=== PATIENT | female | born 1960 | race Caucasian/White ===

== ENCOUNTER 2020-02-02 07:31 | Outpatient (CLI) | payer OTHER, SELFPAY ==
--- NOTE | ~2020-02-02 | MM_ITS ---
EXAMINATION: MM screening sae BI w maddie HISTORY: Screening mammogram TECHNIQUE: Craniocaudal and mediolateral oblique 3-D tomosynthesis images were obtained and synthetic 2-D images were generated. Bilateral rotated lateral CC views. CAD analysis was submitted and inter preted. COMPARISON: 01/31/2019, 10/09/2016, 09/22/2013 bilateral digital screening mammogram examinations BREAST PARENCHYMAL COMPOSITION: The breasts are heterogeneously dense, which may obscure small masses .. FINDINGS: Minimal benign calcification on the left. There is no evidence of suspicious mass, calcif ication, or architectural distortion to suggest malignancy in either breast. There has been no suspic ious interval change. IMPRESSION: 1. No mammographic evidence of malignancy. 2. Recommend routine screening mammography in one year. BI-RADS Category 2: Benign finding(s). Reviewed, dictated and finalized at location A.
== END 2020-02-02 07:32 | disposition home or self-care (01) ==
LOC: ANHIMG 07:34
PROVIDERS: PCP Family Medicine; Visit Provider Family Medicine
DX: Z12.31 Encounter for screening mammogram for malignant neoplasm of breast (principal)
CPT/HCPCS: 77063; 77067

== ENCOUNTER 2021-12-29 12:47 | Emergency (ER) | payer OTHER, SELFPAY ==
[2021-12-29] VITALS (8 sets, daily range): BP systolic 113–140; BP diastolic 65–97; PULSE 54–76; RESP 9–22; TEMP 36.1; O2SAT 96–100
--- NOTE | ~2021-12-29 | XR_ITS ---
EXAMINATION: XR chest 2V EXAM DATE: 12/29/2021 13:28 INDICATION: Central chest pain. TECHNIQUE: Frontal and lateral projections of the chest obtained and reviewed. There is no prior azucena dy for comparison. FINDINGS: Right apical calcified granuloma. The lungs are clear. There are no pleural effusions. T he cardiomediastinal silhouette is within normal limits. There is no pneumothorax suspected. Mild t horacic dextroscoliosis. IMPRESSION: No acute cardiopulmonary findings. Reviewed, dictated and finalized at location A.
--- NOTE | 2021-12-29 12:57 | ECG_ITS ---
Measurements Intervals [place] Rate: 79 P: 24 NM: 176 QRS: -27 QRSD: 94 T: 1 QT: 361 QTc: 416 Interpretive Statements SINUS RHYTHM MODERATE VOLTAGE CRITERIA FOR LVH, CONSIDER NORMAL VARIANT [MEETS CRITERIA IN ONE OF: R(aVL), S(V1), R(V5), R(V5/V6)+S(V1)] POSSIBLE ANTERIOR MYOCARDIAL INFARCTION , PROBABLY OLD [30 ms Q WAVE IN V3/V4, OR R < 0.2 mV IN V4] ABNORMAL ECG NO PREVIOUS ECG AVAILABLE FOR COMPARISON Electronically Signed On 01-01-2022 16:41:24 CDT by Roe Cerna M.D.
--- NOTE | 2021-12-29 13:20 | ED.CHESTPAIN ---
HPI - Chest Pain General Chief Complaint: Chest Pain Stated Complaint: Chest pain Time Seen by Provider: 12/29/21 12:52 History of Present Illness HPI narrative: Patient is a 61-year-old female who presents the ER with chest pain. Intermittent since 6 AM. Occurs once every 30 minutes. It would last for 5 seconds. It is just right of her sternum and below her breast. No radiation into the shoulder. No nausea or vomiting. No exertional component. No history of coronary disease. Reports she was carrying some heavy items yesterday and was concerned maybe she could have injured herself. No numbness or tingling down her arm. She has not a Portuguese pain medication. Cannot describe any alleviating factors. Related Data Allergies Allergy/AdvReac Type Severity Reaction Status Date / Time erythromycin base Allergy Unknown Nausea Verified 12/29/21 12:54 Penicillins Allergy Unknown Hives Verified 12/29/21 12:54 Review of Systems Review of Systems: All systems reviewed & are unremarkable except as noted in HPI and below Constitutional: Constitutional: Denies chills, Denies fever(s) and Denies weakness ENT: Denies nasal congestion and Denies sore throat Cardiovascular: Cardiovascular: Reports chest pain, Denies rapid heart rate and Denies radiating jaw, neck or arm pain Respiratory: Respiratory: Denies cough, Denies dyspnea and Denies wheezing Gastrointestinal: Gastrointestinal: Denies abdominal pain, Denies nausea and Denies vomiting Musculoskeletal: Musculoskeletal: Denies back pain and Denies muscle cramps Neurologic: Denies focal weakness and Denies numbness PMFSH Past Medical History Medical History (Updated 12/29/21 @ 16:36 by Teodoro Hastings MD) Generalized anxiety disorder Prediabetes Prehypertension Reactive airway disease Scoliosis (and kyphoscoliosis), idiopathic Surgical History Surgical History (Updated 12/29/21 @ 13:23 by Teodoro Hastings MD) History of appendectomy (~1979) History of facial surgery Family History Family History Mother Diabetes mellitus Asthma Family history of mental disorder Depression Hypertension Family history of congestive heart failure Family history of cardiovascular disease Father Hypertension Diabetes mellitus Family history of rheumatoid arthritis Family history of Parkinson's disease Family history of malignant melanoma Sibling Hypertension Grandparent Family history of cardiovascular disease Acute myocardial infarction Family history of malignant neoplasm Family history of kidney disease Other Family history of malignant neoplasm of breast Social History Social History (Updated 07/14/21 @ 11:30 by Valentina Villanueva [facility]) Second hand tobacco smoke exposure: No Alcohol intake: never Exam Narrative: GENERAL: Well-appearing, well-nourished, and in no acute distress. HEAD: Normocephalic, atraumatic. EYES: PERRL and EOMI. ENT: Mucous membranes moist. CHEST: Clear to auscultation. No respiratory distress. No reproducible tenderness with palpation. HEART: Regular rate and rhythm. Normal peripheral pulses. ABDOMEN: Soft, nontender, nondistended. EXTREMITIES: Normal range of motion. No edema. SKIN: Warm, dry, no rash. NEURO: Alert and oriented x3. PSYCH: Normal mood and affect. Course Course Emergency Course: Troponin negative x2. Discharge home. Vital Signs Vital signs: Vital Signs Temperature 97 F L 12/29/21 12:51 Pulse Rate 68 12/29/21 12:51 Respiratory Rate 14 12/29/21 12:51 Blood Pressure 140/97 H 12/29/21 12:51 Pulse Oximetry 100 12/29/21 12:51 Temperature 97 F L 12/29/21 12:51 Pulse Rate 75 12/29/21 16:00 Respiratory Rate 22 H 12/29/21 16:00 Blood Pressure 113/65 12/29/21 13:39 Pulse Oximetry 99 12/29/21 16:00 MDM - Chest Pain Lab Data Result diagrams: 12/29/21 13:14 12/29/21 13:14 Labs: Lab
[2021-12-29 13:42] LABS: Basophils Absolute Auto 0.1 K/mm3 (0.0-0.1); Eosinophils Absolute Auto 0.2 K/mm3 (0-0.3); Eosinophils Percent Auto 1.5 % (0-4.4); Hematocrit 42.2 % (37.0-47.0); Hemoglobin 13.6 g/dL (12.0-15.0); Immature Granulocyte Absolute 0.03 K/mm3 (0.00-0.031); Immature Granulocyte Percent A 0.3 % (0-0.5); Lymphocytes Absolute Auto 2.36 K/mm3 (0.9-3.2); Lymphocytes Percent Auto 21.5 % (18.3-44.2); Mean Corpuscular HGB Conc 32.2 g/dl (32-36); Mean Corpuscular Hemoglobin 26.9 pg (26-34); Mean Corpuscular Volume 83.4 fl (80-100); Mean Platelet Volume 10.5 fl (7.4-10.4); Monocytes Absolute Auto 0.7 K/mm3 (0.1-0.6); Monocytes Percent Auto 6.5 % (2.6-8.5); Neutrophils Absolute Auto 7.6 K/mm3 (1.3-6.7); Neutrophils Percent Auto 69.2 % (45.5-73.1); Platelet Count Result 303 k/mm3 (150-375); Red Blood Count 5.06 M/mm3 (4.2-5.4); Red Cell Distribution Width 12.7 % (11.5-14.5)
[2021-12-29 13:58] LABS: Prothrombin Time 12.7 Seconds (11.1-14.7)
[2021-12-29 13:59] LABS: Alanine Aminotransferase 27 U/L (4-35); Albumin Level 4.6 g/dL (3.5-5.1); Alkaline Phosphatase 105 U/L (38-126); Anion Gap 9 mmol/L (8-16); Aspartate Amino Transferase 30 U/L (14-36); Bilirubin,Total 0.2 mg/dL (0.2-1.3); Blood Urea Nitrogen 16 mg/dL (7-17); Calcium 9.6 mg/dL (8.4-10.2); Carbon Dioxide 27 mmol/L (22-30); Chloride 103 mmol/L (98-107); Estimated CRCL calculation 79 ml/min; Estimated Glomerular Filt Rate > 60; Glucose 101 mg/dL (65-110); Lipase 107 U/L (23-300); Partial Thromboplastin Time 27.8 SECONDS (22.3-36.8); Potassium 4.2 mmol/L (3.4-5.0); Sodium 139 mmol/L (137-145)
[2021-12-29 14:11] LABS: Troponin I < 0.012 ng/mL (0.000-0.034)
[2021-12-29 16:28] LABS: Troponin I < 0.012 ng/mL (0.000-0.034)
== END 2021-12-29 17:05 | disposition home or self-care (01) ==
PROVIDERS: Emergency Provider Emergency Medicine; PCP Family Medicine
DX: R07.89 Other chest pain (principal); R73.03 Prediabetes; J45.909 Unspecified asthma, uncomplicated; F41.1 Generalized anxiety disorder; R94.31 Abnormal electrocardiogram [ECG] [EKG]; Z79.84 Long term (current) use of oral hypoglycemic drugs
CPT/HCPCS: 36415; 71046; 80053; 83690; 84484; 85025; 85610; 85730; 93005; 99284

== ENCOUNTER 2022-08-21 07:39 | Outpatient (CLI) | payer OTHER, SELFPAY ==
--- NOTE | 2022-08-21 07:54 | ECHO_ITS ---
Patient Info Name: Jill Guy Age: 62 years : 1960 Gender: Female Ht: 64 in Wt: 190 lbs BSA: 2.01 m2 HR: 61 bpm BP: 150 Technical Quality: Good Exam Date: 08/21/2022 8:08 AM Exam Location: [facility] Patient Status: Outpatient Admit Date: 08/21/2022 Staff Ordering Physician: Breezy Dwyer MD International [employer] Coordinator: Valentin Rosenberg, [place], RT Attending Provider: Breezy Dwyer MD Referring Physician: Reymundo ASKEW; Exam Type: CA echo doppler color flow Study Info Indications R01.1 - Cardiac murmur, unspecified Complete two-dimensional, color flow and Doppler transthoracic echocardiogram is performed. Strain analysis performed. Summary 1. Complete two-dimensional, color flow and Doppler transthoracic echocardiogram is performed. 2. Left ventricular chamber dimension is normal. 3. Left ventricular systolic function is normal, estimated at 60-65%. 4. The left ventricular diastolic function is grade I diastolic dysfunction. 5. E/e' 11 is mildly elevated. 6. Global longitudinal strain is normal at -17.1%. 7. There is trace mitral valve regurgitation. 8. There is trace tricuspid valve regurgitation. Left Ventricle E/e' 11 is mildly elevated. Global longitudinal strain is normal at -17.1%. Left ventricular chamber dimension is normal. Left ventricular systolic function is normal, estimated at 60-65%. The left ventricular diastolic function is grade I diastolic dysfunction. Right Ventricle Right ventricular systolic function is normal and with normal TAPSE 2.0 cm. Right ventricular chamber dimension is normal. Left Atria Left atrial chamber dimension is normal. Right Atria Right atrial chamber dimension is normal. Aortic Valve The aortic valve is trileaflet. There is no aortic valve stenosis. There is no aortic valve regurgitation. Pulmonic Valve There is no pulmonic regurgitation. Mitral Valve There is no mitral valve stenosis. There is trace mitral valve regurgitation. Tricuspid Valve There is trace tricuspid valve regurgitation. RVSP is not calculated due to an inadequate TR jet. Pericardium/Pleural There is no pericardial effusion. Inferior Vena Cava Normal inferior vena cava with >50% collapse upon inspiration consistent with normal right atrial pressure, 5 mmHg. Aorta The aortic root size at the sinus of Valsalva is normal. Left Ventricular Outflow Tract Name Value Normal LVOT 2D LVOT Diameter 2.0 cm LVOT Doppler LVOT Peak Gradient 7 mmHg LVOT Mean Gradient 4 mmHg LVOT VTI 31 cm LVOT VTI/AV VTI Ratio 1.0 LVOT Stroke Volume 94 ml LVOT CO 6.1 l/min LVOT CI 3.0 l/min/m2 Mitral Valve Name Value Normal MV Doppler
== END 2022-08-21 07:40 | disposition home or self-care (01) ==
PROVIDERS: PCP Family Medicine; Visit Provider Family Medicine
DX: R01.1 Cardiac murmur, unspecified (principal)
CPT/HCPCS: 93306

== ENCOUNTER 2023-04-16 07:36 | Outpatient (CLI) | payer BC, SELFPAY ==
--- NOTE | ~2023-04-16 | MM_ITS ---
EXAMINATION: MM screening sae BI w maddie HISTORY: Screening mammogram TECHNIQUE: Craniocaudal and mediolateral oblique 3-D tomosynthesis images were obtained and synthetic 2-D images were generated. CAD analysis was submitted and interpreted. COMPARISON: 02/02/2020, 01/31/2019, 10/09/2016, 09/22/2013 bilateral screening mammogram examinations BREAST PARENCHYMAL COMPOSITION: There are scattered areas of fibroglandular density. FINDINGS: There is no evidence of suspicious mass, calcification, or architectural distortion to sugg est malignancy in either breast. There has been no suspicious interval change. IMPRESSION: 1. No mammographic evidence of malignancy. 2. Recommend routine screening mammography in one year. BI-RADS Category 1: Negative Reviewed, dictated and finalized at location A.
== END 2023-04-16 07:37 | disposition home or self-care (01) ==
LOC: ANHIMG 07:38
PROVIDERS: PCP Family Medicine; Visit Provider Family Medicine
DX: Z12.31 Encounter for screening mammogram for malignant neoplasm of breast (principal)
CPT/HCPCS: 77063; 77067

== ENCOUNTER 2024-09-29 09:50 | Outpatient (CLI) | payer BC, SELFPAY ==
--- NOTE | 2024-09-29 09:58 | EST_ITS ---
Patient Info Name: Jill Guy Age: 64 years : 1960 Gender: Female Ht: 64 in Wt: 187 lbs BSA: 1.99 m2 HR: 72 bpm BP: 151 / 69 mmHg Heart Rhythm: Sinus Rhythm Exam Date: 09/29/2024 10:17 AM Exam Location: Echo Lab Patient Status: Outpatient Admit Date: 09/29/2024 Staff Ordering Physician: Breezy Dwyer MD [employer] Spray Supervisor: Pura Eller RDCS Attending Provider: EFRAIN CARLSON Referring Physician: Reymundo ASKEW; Exercise Technologist: Pura Eller RDCS Exercise Physician: Efrain Carlson DO Exam Type: CA stress echo Study Info Indications - other forms of anginia pectoris Treadmill exercise stress echocardiogram is performed. Summary 1. 1. Negative Se exercise stress test for ischemic ST changes by ECG criteria. 2. 2. Good functional capacity, achieving 7 METs of workload. 3. 3. Appropriate HR response to exercise. 4. 4. Appropriate HR recovery at 1 minute post exercise. 5. 5. Negative stress echocardiogram for ischemia by wall motion analysis. 6. 6. Patient informed of the above results. Stress Echo Findings Left Ventricle Appropriate increase in LV endocardial thickening with systole. Appropriate augmentation of contractility with systole. No wall motion abnormality. Left Ventricle Normal LV systolic function, no wall motion abnormality. Protocol: Se Stress ECG Details Stage: REST Duration (min): 0 min : 52 sec Speed (mph): 0.0 Grade (%): 0 HR (bpm): 79 SBP (mmHg): 151 DBP (mmHg): 69 METS: --- Stage: REST Duration (min): 7 min : 5 sec Speed (mph): 0.0 Grade (%): 0 HR (bpm): 73 SBP (mmHg): 151 DBP (mmHg): 69 METS: --- Stage: STAGE 1 Duration (min): 1 min : 0 sec Speed (mph): 1.7 Grade (%): 10 HR (bpm): 106 SBP (mmHg): 151 DBP (mmHg): 69 METS: --- Stage: STAGE 1 Duration (min): 2 min : 0 sec Speed (mph): 1.7 Grade (%): 10 HR (bpm): 125 SBP (mmHg): 151 DBP (mmHg): 69 METS: --- Stage: STAGE 1 Duration (min): 3 min : 0 sec Speed (mph): 1.7 Grade (%): 10 HR (bpm): 129 SBP (mmHg): 107 DBP (mmHg): 58 METS: --- Stage: STAGE 2 Duration (min): 1 min : 0 sec Speed (mph): 2.5 Grade (%): 12 HR (bpm): 132 SBP (mmHg): 107 DBP (mmHg): 58 METS: --- Stage: STAGE 2 Duration (min): 2 min : 0 sec Speed (mph): 2.5 Grade (%): 12 HR (bpm): 135 SBP (mmHg): 167 DBP (mmHg): 88 METS: --- Stage: STAGE 2 Duration (min): 3 min : 0 sec Speed (mph): 2.5 Grade (%): 12 HR (bpm): 137 SBP (mmHg): 167 DBP (mmHg): 88 METS: --- Stage: STAGE 3 Duration (min): 0 min : 1 sec Speed (mph): 0.0 Grade (%): 0 HR (bpm): 137 SBP (mmHg): 167 DBP (mmHg): 88 METS: --- Stage: RECOVERY Duration (min): 0 min : 58 sec Speed (mph): 0.0 Grade (%): 0 HR (bpm): 128 SBP (mmHg): 133 DBP (mmHg): 74 METS: --- Stage: RECOVERY Duration (min): 1 min : 6 sec Speed (mph): 0.0 Grade (%): 0 HR (bpm): 126 SBP (mmHg): 133 DBP (mmHg): 74 METS: --- Rest HR: 73 bpm Peak HR: 139 bpm Rest Sys BP: 151 mmHg Peak Sys BP: 167 mmHg Max Pred HR: 157 bpm % Max Pred HR: 89 % Target HR: 133 bpm Max RPP: 23,213 bpm*mmHg Calderon Score: -6 Termination Reason: Reached target heart rate or workload Cardiac Symptoms: Shortness of breath Max ST Seg Deviation: -2.50 mm Total Time: 6 min : 1 sec Rest Phillip BP: 69 mmHg Peak Phillip BP: 88 mmHg Angina Score: None Total METS: 7.1 Resting ECG Sinus rhythm. Stress ECG No ST changes. Arrhythmias None. Report Signatures Stress ECG Echo
== END 2024-09-29 09:51 | disposition home or self-care (01) ==
PROVIDERS: PCP Family Medicine; Visit Provider Family Medicine
DX: I20.89 Other forms of angina pectoris (principal)
CPT/HCPCS: 93351

== ENCOUNTER 2024-10-24 07:46 | Outpatient (CLI) | payer BC, SELFPAY ==
--- NOTE | ~2024-10-24 | MM_ITS ---
EXAMINATION: MM screening sae BI w maddie HISTORY: Screening TECHNIQUE: Craniocaudal and mediolateral oblique 3-D tomosynthesis images were obtained and synthetic 2-D images were generated. CAD analysis was submitted and interpreted. COMPARISON: Comparison to multiple prior studies sequentially, with oldest reviewed study dated 10/09. BREAST PARENCHYMAL COMPOSITION: Not dense: There are scattered areas of fibroglandular density. FINDINGS: There is no evidence of suspicious mass, calcification, or architectural distortion to sugg est malignancy in either breast. There has been no suspicious interval change. IMPRESSION: 1. No mammographic evidence of malignancy. 2. Recommend routine screening mammography in one year. BI-RADS Category 1: Negative Reviewed, dictated and finalized at location B. NOLOGY INTERN
== END 2024-10-24 07:47 | disposition home or self-care (01) ==
LOC: ANHIMG 07:50
PROVIDERS: PCP Family Medicine; Visit Provider Family Medicine
DX: Z12.31 Encounter for screening mammogram for malignant neoplasm of breast (principal)
CPT/HCPCS: 77063; 77067

== ENCOUNTER 2025-03-21 16:12 | Outpatient (CLI) | payer BC, SELFPAY ==
--- NOTE | ~2025-03-21 | XR_ITS ---
Right Shoulder Technique: AP and scapular Y views were obtained. Clinical History: Pain Findings: No fracture or dislocation is seen. Osseous alignment is anatomic. The glenohumeral and acr omioclavicular joint spaces are preserved. Soft tissues are unremarkable. Impression: Unremarkable right shoulder radiographs. Reviewed, dictated and finalized at [facility]. Impression: Unremarkable right shoulder radiographs.
== END 2025-03-21 16:13 | disposition home or self-care (01) ==
LOC: GOSHIMG 16:12
PROVIDERS: PCP Nurse Practitioner Family; Visit Provider Nurse Practitioner Family
DX: M25.511 Pain in right shoulder (principal)
CPT/HCPCS: 73030

== ENCOUNTER 2025-08-06 14:26 | Outpatient (CLI) | payer BC, SELFPAY ==
--- NOTE | 2025-08-07 07:21 | WPDPFTINT ---
PFT Procedure Performed PFT Procedure Performed Spirometry with Pre/Post Bronchodilator Plethysmography (Lung Vol) Diffusing Cap (DLCO) Flow Vol Loop PFT Interpretation This is a pulmonary function test with pre and post-bronchodilator spirometry, plethysmography and diffusing capacity. The test was performed and results interpreted in accordance with the 2019 and 2005 ATS/ERS Task Force guidelines respectively using the Global Lung Function Initiative-2012 reference equations. Patient demonstrated good effort and cooperation. Reproducibility criteria were met. The quality of the pre bronchodilator spirometry maneuver was Grade A and post bronchodilator spirometry maneuver was Grade A. Findings: Spirometry: The contour of the inspiratory and expiratory flow tracing are normal. The pre bronchodilator FVC is 2.52 L, 82% predicted. The pre bronchodilator FEV1 is 1.96 L, 82% predicted. The pre bronchodilator FEV1: FVC ratio 78%. The post bronchodilator FVC is 2.45 L, representing a 3% decrease. The post bronchodilator FEV1 is 2.02 L, representing a 3% increase. The post bronchodilator FEV1: FVC ratio is 83%. Plethysmography: The total lung capacity is 4.21 L, 83% predicted. The functional residual capacity is 1.98 L, 69% predicted. The residual volume is 1.66 L, 80% predicted. Diffusing capacity: The diffusing capacity unadjusted for hemoglobin and carboxyhemoglobin is 18.0, 85% predicted. The diffusing capacity adjusted for alveolar volume is 5.32, 122% predicted. Impression: The spirometry is normal without evidence of an obstructive abnormality. There is no significant improvement after inhaling a single dose of albuterol. The lung volumes are normal. The diffusing capacity is normal. There are no prior studies for comparison
== END 2025-08-06 14:27 | disposition home or self-care (01) ==
PROVIDERS: PCP Family Medicine; Visit Provider Nurse Practitioner Family
DX: R06.09 Other forms of dyspnea (principal)
CPT/HCPCS: 94060; 94726; 94729